=== PATIENT | male | born 1940 | race African-American/Black ===

== ENCOUNTER 2023-01-18 12:03 | Inpatient (IN) | payer MEDICARE, MEDICAID ==
[2023-01-18 12:32] LABS: Bacteria/HPF 1+ HPF (None Seen); Bilirubin Negative (Negative); Blood, Urine Trace (Negative); CAUTI Indications for Culture Alt mental st,lethar; Clarity Turbid (Clear); Glucose, Urine (Dipstick) Normal (Negative); Ketone, Urine Negative (Negative); Leukocyte 500 Leu/uL (Negative); Nitrite Negative (Negative); Protein, Urine (Dipstick) 20 mg/dL (Neg-Trace); Squamous Epithelial 0-3 HPF (0-3); Urobilinogen 3 mg/dL (Less than 2); WBC/HPF Greater than 50 HPF (0-3); pH, Urine 6.5 (5.0-9.0)
[2023-01-18 12:33] LABS: Urine Culture Reflex Yes Yes
[2023-01-18 13:12] LABS: #Eosinphils 0.1 thou/uL (0.0-0.7); #Monocytes 1.2 thou/uL (0.11-0.59); #Neutrophils 10.4 thou/uL (1.40-6.50); %Basophils 0.2 % (0.0-1.0); %Eosinophils 0.5 % (0.0-10.0); %Lymphocytes 9.7 % (21.0-51.0); %Neutrophils 80.4 % (42.0-75.0); Hematocrit 34.1 % (42.0-52.0); Hemoglobin 10.9 g/dL (14.0-18.0); Mean Corpuscular Hemoglobin 25.2 pg (27.0-31.0); Mean Corpuscular Volume 78.9 fl (78.0-98.0); Mean Platelet Volume 10.2 fL (7.4-10.4); Platelet Count 239 10x3/uL (130-400); RBC Distribution Width 13.8 % (11.5-14.5); Red Blood Cell (RBC) Count 4.32 mill/uL (4.70-6.10); White Blood Cell (WBC) Count 12.9 10x3/uL (4.8-10.8)
[2023-01-18 13:36] LABS: ALT (SGPT) 22 U/L (8-55); AST (SGOT) 21 U/L (5-34); Albumin 3.1 g/dL (3.4-4.8); Alkaline Phosphatase 233 U/L (40-110); Anion Gap 14 mmol/L (10-20); BUN (Urea Nitrogen) 29 mg/dL (8.4-25.7); Bilirubin, Total 0.7 mg/dL (0.2-1.2); Calc. Creatinine Clearance 0 mL/min (70-130); Calcium 8.8 mg/dL (7.8-10.44); Carbon Dioxide 30 mmol/L (23-31); Chloride 87 mmol/L (98-107); Estimated GFR 56; Glucose 210 mg/dL (83-110); Lipase Less than 4 U/L (8-78); Potassium 4.1 mmol/L (3.5-5.1); Protein, Total 8.1 g/dL (5.8-8.1); Sodium 127 mmol/L (136-145)
[2023-01-18 13:39] LABS: Troponin I Less than 0.010 ng/mL (< 0.028)
[2023-01-18 14:09] LABS: Actual Bicarbonate (HCO3v) 24.8 mEq/L (22-28); Base Excess 0.3 mEq/L (-2.0 to +3.0); Calcium, Ionized (venous) 1.02 mmol/L (1.16-1.32); Chloride (VBG) 89 mmol/L (98-106); Hematocrit-VBG 35 % (42.0-52.0); Potassium (VBG) 4.03 mmol/L (3.70-5.30); Sodium 127 mmol/L (133-146); pH (venous) 7.414 (7.32-7.43)
[2023-01-18] MEDS ORDERED: Sodium Chloride 0.9% 100 ML ONE (14:21)
[2023-01-18] MEDS ORDERED: Cefepime 2 GM VIAL ONE (14:21)
[2023-01-18] MEDS ORDERED: Vancomycin (BATCH) 2 GM/500 ML BAG ONE (14:22)
[2023-01-18 16:40] VITALS: BMI 32.8
[2023-01-18] MEDS ORDERED: Glucagon 1 MG/ML KIT IM PRN (17:26)
[2023-01-18] MEDS ORDERED: Dextrose 50% Abboject 50 ML SYRINGE SLOW IVP PRN (17:26)
[2023-01-18] MEDS ORDERED: Dextrose 5% in Water 1,000 ML IV PRN (17:26)
[2023-01-18] MEDS: Vancomycin 1 GM in Premix 1 BAG IVPB SCH (17:37)
[2023-01-18] MEDS: Gabapentin 100 MG CAP PO SCH (21:06)
[2023-01-18] MEDS: Apixaban 5 MG TAB PO SCH (21:06)
[2023-01-18] MEDS: Metoprolol Tartrate 50 MG TAB PO SCH (21:06)
[2023-01-18] MEDS: Acetaminophen 325 MG TAB PO PRN (21:37)
[2023-01-19] MEDS: Cefepime 1 GM in Sodium Chloride 0.9% 100 ML IVPB SCH (01:47)
[2023-01-19 05:27] LABS: #Eosinphils 0.4 thou/uL (0.0-0.7); #Monocytes 0.9 thou/uL (0.11-0.59); #Neutrophils 5.6 thou/uL (1.40-6.50); %Basophils 0.2 % (0.0-1.0); %Eosinophils 4.7 % (0.0-10.0); %Lymphocytes 12.7 % (21.0-51.0); %Monocytes 11.7 % (0.0-10.0); %Neutrophils 70.5 % (42.0-75.0); Hematocrit 31.9 % (42.0-52.0); Hemoglobin 9.7 g/dL (14.0-18.0); Mean Corpuscular HGB CONC 30.4 g/dL (32.0-36.0); Mean Corpuscular Hemoglobin 24.4 pg (27.0-31.0); Mean Corpuscular Volume 80.4 fl (78.0-98.0); Mean Platelet Volume 9.7 fL (7.4-10.4); Platelet Count 233 10x3/uL (130-400); RBC Distribution Width 13.8 % (11.5-14.5); Red Blood Cell (RBC) Count 3.97 mill/uL (4.70-6.10)
[2023-01-19 05:48] LABS: Anion Gap 11 mmol/L (10-20); BUN (Urea Nitrogen) 28 mg/dL (8.4-25.7); Calc. Creatinine Clearance 86 mL/min (70-130); Calcium 8.5 mg/dL (7.8-10.44); Carbon Dioxide 32 mmol/L (23-31); Chloride 90 mmol/L (98-107); Estimated GFR 66; Glucose 155 mg/dL (83-110); Potassium 3.7 mmol/L (3.5-5.1); Sodium 129 mmol/L (136-145)
[2023-01-19] MEDS: Insulin Glargine 30 UNITS/0.3 ML VIAL SC SCH (07:57)
[2023-01-19] MEDS: Sodium Chloride 0.9% 1,000 ML IV SCH (12:16)
[2023-01-19] MEDS: Loperamide HCl 2 MG CAP PO PRN (12:19)
[2023-01-19] MEDS ORDERED: Vancomycin (BATCH) 1.75 GM in Premix 1 BAG IVPB SCH (15:00)
[2023-01-19] MEDS: Gabapentin 100 MG CAP PO SCH (21:13)
[2023-01-20 04:24] LABS: Anion Gap 11 mmol/L (10-20); BUN (Urea Nitrogen) 19 mg/dL (8.4-25.7); Calc. Creatinine Clearance 93 mL/min (70-130); Calcium 8.3 mg/dL (7.8-10.44); Carbon Dioxide 31 mmol/L (23-31); Chloride 93 mmol/L (98-107); Estimated GFR 73; Glucose 146 mg/dL (83-110); Potassium 3.3 mmol/L (3.5-5.1); Sodium 132 mmol/L (136-145)
[2023-01-20] MEDS: Potassium Chloride 20 MEQ TAB PO SCH (08:22)
[2023-01-20] MEDS: Saccharomyces boulardii 250 MG CAP PO SCH (08:23)
[2023-01-20] MEDS: Amlodipine 10 MG TAB PO SCH (08:23)
[2023-01-20] MEDS: Tamsulosin HCl 0.4 MG CAP PO SCH (08:23)
[2023-01-20 14:39] LABS: Vancomycin, Trough 5.7 ug/mL
[2023-01-21] MEDS: Cefepime 2 GM in Sodium Chloride 0.9% 100 ML IVPB SCH (01:09)
[2023-01-21 06:22] LABS: #Eosinphils 0.2 thou/uL (0.0-0.7); #Monocytes 1.1 thou/uL (0.11-0.59); %Basophils 0.3 % (0.0-1.0); %Eosinophils 2.6 % (0.0-10.0); %Lymphocytes 17.8 % (21.0-51.0); %Monocytes 13.7 % (0.0-10.0); %Neutrophils 65.3 % (42.0-75.0); Hematocrit 28.3 % (42.0-52.0); Hemoglobin 8.7 g/dL (14.0-18.0); Mean Corpuscular HGB CONC 30.7 g/dL (32.0-36.0); Mean Corpuscular Hemoglobin 25.1 pg (27.0-31.0); Mean Corpuscular Volume 81.6 fl (78.0-98.0); Mean Platelet Volume 10.3 fL (7.4-10.4); Platelet Count 240 10x3/uL (130-400); RBC Distribution Width 13.6 % (11.5-14.5); Red Blood Cell (RBC) Count 3.47 mill/uL (4.70-6.10); White Blood Cell (WBC) Count 7.7 10x3/uL (4.8-10.8)
[2023-01-21 06:48] LABS: Anion Gap 10 mmol/L (10-20); BUN (Urea Nitrogen) 13 mg/dL (8.4-25.7); Calc. Creatinine Clearance 113 mL/min (70-130); Calcium 8.7 mg/dL (7.8-10.44); Carbon Dioxide 31 mmol/L (23-31); Chloride 94 mmol/L (98-107); Estimated GFR 88; Glucose 134 mg/dL (83-110); Potassium 3.4 mmol/L (3.5-5.1); Sodium 132 mmol/L (136-145)
[2023-01-21] MEDS ORDERED: fentaNYL PF 100 MCG/2 ML SYRINGE ONE (07:24)
[2023-01-21] MEDS ORDERED: PROPOFOL 20 ML ONE (07:24)
[2023-01-21] MEDS ORDERED: Ondansetron PF 4 MG/2 ML Vial ONE ×2 (08:20→08:41)
[2023-01-21] MEDS ORDERED: Rocuronium Bromide 10 MG/ML (10ML VIAL) ONE ×2 (08:20→08:41)
[2023-01-21] MEDS ORDERED: Glycopyrrolate 0.2 MG/ML 5 ML SYRINGE ONE ×2 (08:41→09:07)
[2023-01-21] MEDS ORDERED: PROPOFOL 200 MG/20 ML VIAL ONE (08:41)
[2023-01-21] MEDS ORDERED: NEOSTIGMINE 3 MG/3 ML SYR 3 MG/3 ML SYRINGE ONE ×2 (08:41→09:07)
[2023-01-21] MEDS ORDERED: Promethazine HCl 25 MG/ML VIAL IM PRN (09:11)
[2023-01-21] MEDS ORDERED: Ondansetron HCl/PF 4 MG/2 ML Vial IVP PRN (09:11)
[2023-01-21] MEDS ORDERED: fentaNYL 50 mcg/mL 1 mL Vial ONE (09:49)
[2023-01-21] MEDS: Ferrous Sulfate 325 MG TAB PO SCH (11:31)
[2023-01-21] MEDS: Ascorbic Acid 500 mg Chewable Tablet PO SCH (11:31)
[2023-01-21] MEDS: NS 0.9% w/ 40 MEQ KCL 1,000 ML IV SCH (17:36)
[2023-01-22 07:32] LABS: Anion Gap 12 mmol/L (10-20); BUN (Urea Nitrogen) 11 mg/dL (8.4-25.7); Calc. Creatinine Clearance 115 mL/min (70-130); Calcium 8.6 mg/dL (7.8-10.44); Carbon Dioxide 29 mmol/L (23-31); Chloride 96 mmol/L (98-107); Estimated GFR 88; Glucose 145 mg/dL (83-110); Potassium 4.2 mmol/L (3.5-5.1); Sodium 133 mmol/L (136-145)
[2023-01-22] MEDS: HumaLOG 300 UNITS/3 ML VIAL SC PRN (12:48)
[2023-01-23 06:57] LABS: Hematocrit 28.5 % (42.0-52.0); Hemoglobin 8.6 g/dL (14.0-18.0); Mean Corpuscular HGB CONC 30.2 g/dL (32.0-36.0); Mean Corpuscular Hemoglobin 25.1 pg (27.0-31.0); Mean Corpuscular Volume 83.3 fl (78.0-98.0); Mean Platelet Volume 9.8 fL (7.4-10.4); Platelet Count 263 10x3/uL (130-400); RBC Distribution Width 13.6 % (11.5-14.5); Red Blood Cell (RBC) Count 3.42 mill/uL (4.70-6.10); White Blood Cell (WBC) Count 6.3 10x3/uL (4.8-10.8)
[2023-01-23 07:13] LABS: Delete Auto Diff?? YES; Manual Diff?? YES
[2023-01-23 07:19] LABS: Anion Gap 10 mmol/L (10-20); BUN (Urea Nitrogen) 11 mg/dL (8.4-25.7); Calc. Creatinine Clearance 109 mL/min (70-130); Calcium 8.8 mg/dL (7.8-10.44); Carbon Dioxide 29 mmol/L (23-31); Chloride 99 mmol/L (98-107); Estimated GFR 87; Glucose 142 mg/dL (83-110); Sodium 134 mmol/L (136-145)
[2023-01-23 08:15] LABS: Band 2 % (5-11); CellaVision Operator ID LAB.GE; Eosinophils 7 % (0-10); Hypochromia SLIGHT = 6-15 cells HPF (0-5); Lymphocytes 15 % (21-51); Metamyelocyte 1 % (0-0); Monocytes 9 % (0-10); Neutrophil 61 % (42-75); Platelet Adequacy Comment Platelets Normal; Polychromasia SLIGHT = 2-3 cells HPF (0-2); Reactive Lymphocytes 4 % (0-10); Total Cell Count 101
[2023-01-23] MEDS: Furosemide 20 MG TAB PO SCH (08:56)
[2023-01-23] MEDS: Ferrous Sulfate 325 MG TAB PO SCH (08:56)
[2023-01-23] MEDS ORDERED: Lidocaine 4% Topical Sol 50 ML BOT TOP PRN (11:34)
[2023-01-24 12:39] VITALS: BP 159/79; TEMP 98.6
== END 2023-01-24 14:09 | DRG 987 ==
LOC: ERS 12:03 → T4-A 15:39 → OBSVTOIN 01-19 13:40
PROVIDERS: ADMIT Internal Medicine; ATTEND Family Medicine
PROC: 0QBP0ZZ Excision of Left Metatarsal, Open Approach (ICD-10-PCS; principal; 2023-01-21)
PROC: 4A043R1 Measurement of Venous Saturation, Peripheral, Percutaneous Approach (ICD-10-PCS; 2023-01-21)
DX: L89.624 Pressure ulcer of left heel, stage 4 (principal); I26.99 Other pulmonary embolism without acute cor pulmonale; E11.52 Type 2 diabetes mellitus with diabetic peripheral angiopathy with gangrene; E87.1 Hypo-osmolality and hyponatremia; I50.42 Chronic combined systolic (congestive) and diastolic (congestive) heart failure; J98.11 Atelectasis; N39.0 Urinary tract infection, site not specified; G82.20 Paraplegia, unspecified; I82.492 Acute embolism and thrombosis of other specified deep vein of left lower extremity; R53.81 Other malaise; B96.4 Proteus (mirabilis) (morganii) as the cause of diseases classified elsewhere; I11.0 Hypertensive heart disease with heart failure; N40.0 Benign prostatic hyperplasia without lower urinary tract symptoms; E66.9 Obesity, unspecified; B96.5 Pseudomonas (aeruginosa) (mallei) (pseudomallei) as the cause of diseases classified elsewhere; N31.9 Neuromuscular dysfunction of bladder, unspecified; Z88.5 Allergy status to narcotic agent; Z98.890 Other specified postprocedural states; Z87.891 Personal history of nicotine dependence; Z79.4 Long term (current) use of insulin; Z68.32 Body mass index [BMI] 32.0-32.9, adult; Z79.01 Long term (current) use of anticoagulants; Z74.01 Bed confinement status; L89.159 Pressure ulcer of sacral region, unspecified stage
CPT/HCPCS: 36415; 36416; 71045; 80048; 80053; 80202; 81001; 82805; 83605; 83690; 83880; 83930; 83935; 84300; 84484; 85025; 87040; 87070; 87077; 87086; 87149; 87186; 87205; 88305; 93005; 93306; 96365; 96367; 96376; 97139; G0378; J0692; J1815; J2405; J2704; J3010; J3370; J3480; J3490; J7050

== ENCOUNTER 2023-03-15 17:01 | Emergency (ER) | payer MEDICARE ==
[2023-03-15 18:07] LABS: #Eosinphils 0.2 thou/uL (0.0-0.7); #Monocytes 0.6 thou/uL (0.11-0.59); %Basophils 0.4 % (0.0-1.0); %Eosinophils 3.7 % (0.0-10.0); %Lymphocytes 29.1 % (21.0-51.0); %Monocytes 11.7 % (0.0-10.0); %Neutrophils 54.9 % (42.0-75.0); Hematocrit 31.6 % (42.0-52.0); Hemoglobin 9.9 g/dL (14.0-18.0); Mean Corpuscular HGB CONC 31.3 g/dL (32.0-36.0); Mean Corpuscular Hemoglobin 23.1 pg (27.0-31.0); Mean Corpuscular Volume 73.8 fl (78.0-98.0); Mean Platelet Volume 9.9 fL (7.4-10.4); Platelet Count 276 10x3/uL (130-400); Red Blood Cell (RBC) Count 4.28 mill/uL (4.70-6.10); White Blood Cell (WBC) Count 5.5 10x3/uL (4.8-10.8)
[2023-03-15 18:25] LABS: ALT (SGPT) Less than 7 U/L (8-55); AST (SGOT) 19 U/L (5-34); Albumin 2.8 g/dL (3.4-4.8); Alkaline Phosphatase 89 U/L (40-110); Anion Gap 13 mmol/L (10-20); BUN (Urea Nitrogen) 5 mg/dL (8.4-25.7); Bilirubin, Total 0.3 mg/dL (0.2-1.2); Calc. Creatinine Clearance 0 mL/min (70-130); Calcium 8.3 mg/dL (7.8-10.44); Carbon Dioxide 26 mmol/L (23-31); Chloride 97 mmol/L (98-107); Estimated GFR 88; Globulin 5.5 g/dL (2.4-3.5); Glucose 106 mg/dL (83-110); Potassium 3.4 mmol/L (3.5-5.1); Protein, Total 8.3 g/dL (5.8-8.1); Sodium 133 mmol/L (136-145)
[2023-03-15 18:49] LABS: CellaVision Operator ID lab.dlt; Hypochromia SLIGHT = 6-15 cells HPF (0-5); Large Platelets 9.1 % (0-5); Microcytosis SLIGHT = 6-15 cells HPF (0-5); Platelet Adequacy Comment Platelets Normal; Polychromasia SLIGHT = 2-3 cells HPF (0-2); Smudge Cells 11.1 %
[2023-03-15 18:57] LABS: Bacteria/HPF 4+ HPF (None Seen); Bilirubin Negative (Negative); Blood, Urine Negative (Negative); CAUTI Indications for Culture Dysuria,urgency,freq; Clarity Turbid (Clear); Glucose, Urine (Dipstick) Normal (Negative); Ketone, Urine Negative (Negative); Leukocyte 500 Leu/uL (Negative); Nitrite Negative (Negative); Protein, Urine (Dipstick) Negative (Neg-Trace); RBC/HPF 0-3 HPF (0-3); Specific Gravity, Urine 1.004 (1.002-1.036); Squamous Epithelial None Seen HPF (0-3); Urobilinogen Normal mg/dL (Less than 2); WBC/HPF 21-50 HPF (0-3)
[2023-03-15 18:59] LABS: Urine Culture Reflex Yes Yes
[2023-03-15] MEDS ORDERED: Furosemide 40 MG (4 mL) VIAL ONE (22:01)
[2023-03-15 23:44] LABS: SARS-CoV-2 NAA Rapid Test Not Detected (NotDetected)
== END 2023-03-15 23:29 | disposition home or self-care (01) ==
LOC: ERS 17:01
DX: N39.0 Urinary tract infection, site not specified (principal); I50.9 Heart failure, unspecified; E11.9 Type 2 diabetes mellitus without complications; Z20.822 Contact with and (suspected) exposure to COVID-19
CPT/HCPCS: 0240U; 71045; 80053; 81001; 83605; 83880; 84484; 85025; 87086; 93005; 87077; 87186; 96374; J1940

== ENCOUNTER 2023-05-04 20:27 | Emergency (ER) | payer MEDICAID, MEDICARE ==
[~2023-05-04 20:27] MED LIST: Iopamidol-370 76% 500 ML MDV (1 ML CHARGE) ONE
[2023-05-04 21:43] LABS: #Eosinphils 0.1 thou/uL (0.0-0.7); #Monocytes 0.6 thou/uL (0.11-0.59); #Neutrophils 3.2 thou/uL (1.40-6.50); %Basophils 0.2 % (0.0-1.0); %Lymphocytes 21.9 % (21.0-51.0); %Monocytes 11.5 % (0.0-10.0); %Neutrophils 64.2 % (42.0-75.0); Hematocrit 28.3 % (42.0-52.0); Hemoglobin 8.4 g/dL (14.0-18.0); Mean Corpuscular HGB CONC 29.7 g/dL (32.0-36.0); Mean Corpuscular Hemoglobin 24.1 pg (27.0-31.0); Mean Corpuscular Volume 81.1 fl (78.0-98.0); Mean Platelet Volume 10.5 fL (7.4-10.4); Platelet Count 232 10x3/uL (130-400); RBC Distribution Width 17.3 % (11.5-14.5); Red Blood Cell (RBC) Count 3.49 mill/uL (4.70-6.10); White Blood Cell (WBC) Count 4.9 10x3/uL (4.8-10.8)
[2023-05-04 22:04] LABS: ALT (SGPT) 26 U/L (8-55); AST (SGOT) 38 U/L (5-34); Albumin 3.1 g/dL (3.4-4.8); Alkaline Phosphatase 232 U/L (40-110); Anion Gap 10 mmol/L (10-20); BUN (Urea Nitrogen) 13 mg/dL (8.4-25.7); Bilirubin, Total 0.5 mg/dL (0.2-1.2); Calc. Creatinine Clearance 0 mL/min (70-130); Calcium 8.9 mg/dL (7.8-10.44); Carbon Dioxide 33 mmol/L (23-31); Chloride 91 mmol/L (98-107); Estimated GFR 86; Globulin 4.6 g/dL (2.4-3.5); Glucose 144 mg/dL (83-110); Lipase 9 U/L (8-78); Potassium 4.7 mmol/L (3.5-5.1); Protein, Total 7.7 g/dL (5.8-8.1); Sodium 129 mmol/L (136-145)
[2023-05-04] MEDS ORDERED: Morphine 4 MG/ML VIAL ONE (23:11)
[2023-05-05 00:06] LABS: Bilirubin Negative (Negative); Blood, Urine Negative (Negative); CAUTI Indications for Culture Pelvic or flank pain; Clarity Clear (Clear); Glucose, Urine (Dipstick) Normal (Negative); Ketone, Urine Negative (Negative); Leukocyte 250 Leu/uL (Negative); Nitrite Negative (Negative); Protein, Urine (Dipstick) 10 mg/dL (Neg-Trace); RBC/HPF 0-3 HPF (0-3); Specific Gravity, Urine 1.013 (1.002-1.036); Squamous Epithelial 0-3 HPF (0-3); Urobilinogen Normal mg/dL (Less than 2); Yeast-Budding 1+ HPF (None Seen)
[2023-05-05 00:07] LABS: Bacteria/HPF Rare-Few HPF (None Seen); Urine Culture Reflex Yes Yes
== END 2023-05-05 07:40 ==
LOC: ERS 20:27
DX: E86.0 Dehydration (principal); E11.9 Type 2 diabetes mellitus without complications; I11.0 Hypertensive heart disease with heart failure; I50.9 Heart failure, unspecified; I25.10 Atherosclerotic heart disease of native coronary artery without angina pectoris; N40.0 Benign prostatic hyperplasia without lower urinary tract symptoms; J81.1 Chronic pulmonary edema; G82.20 Paraplegia, unspecified; K21.9 Gastro-esophageal reflux disease without esophagitis; Z86.711 Personal history of pulmonary embolism; Z86.718 Personal history of other venous thrombosis and embolism
CPT/HCPCS: 71045; 74177; 80053; 81001; 83605; 83690; 83880; 85025; 87086; 96361; 96374; J2270; Q9967